=== PATIENT | male | born 1960 | race Hispanic/Latino ===

== ENCOUNTER 2022-10-14 21:55 | Emergency (ER) | payer BC ==
[2022-10-14] MEDS ORDERED: FAMOTIDINE 20 MG/2 ML VIAL IV ONE (23:37)
[2022-10-14] MEDS ORDERED: PANTOPRAZOLE 40 MG INJ ONE (23:37)
[2022-10-14] MEDS ORDERED: NA CHLORIDE 0.9% 250 ML ONE (23:37)
[2022-10-14 23:56] LABS: Absolute Lymphocytes (CBC) 1.7 K/uL (0.7-4.9); Hematocrit 36.7 % (39.6-49.0); MCV 94.1 fL (80-100); MPV 7.3 fL (7.6-11.3)
[2022-10-15 00:13] LABS: Albumin 3.7 g/dL (3.4-5.0); Bilirubin Total 0.6 mg/dL (0.2-1.0); Potassium 3.8 mEq/L (3.5-5.1); Protein, Total 6.6 g/dL (6.4-8.2)
--- NOTE | 2022-10-15 02:46 | EDPHYS ---
Physician Documentation [facility] Name: Saul Russo Age: 62 yrs Sex: Male : 1960 Arrival Date: 10/14/2022 Time: 21:55 Bed 2 Private MD: ED Physician Arturo Guzman HPI: 10/14 22:29 This 62 yrs old Male presents to ER via Unassigned with complaints of Bloody sp4 Stools. 22:36 Patient presents with cute onset of bloody bowel movement starting at 2 PM. Patient sp4 developed diffuse abdominal pain about 2 PM associated with 2 episodes of bright red blood per rectum. Patient has no prior similar symptoms. No dizziness or passing out. No bloody emesis. Patient has history of partial colectomy done in [facility] 3 years ago for acute diverticulitis. Patient is a resident of [facility] he is here on a leisure trip. . Historical: - Allergies: 23:12 No Known Allergies; lg3 - Home Meds: 23:12 Paxil Oral [Active]; Simvastatin Oral [Active]; losartan oral [Active]; amlodipine oral lg3 [Active]; - PMHx: 23:12 HTN; high cholesterol; Diverticulitis; lg3 - PSHx: 23:12 colon removal; lg3 - Immunization history:: Adult Immunizations up to date, Client reports having NOT received the Covid vaccine. Pneumococcal vaccine is up to date, Flu vaccine is not up to date. - Social history:: Patient/guardian denies using alcohol, street drugs, IV drugs, caffeine, over the counter diet medications, tobacco products, Smoking status: Patient denies any tobacco usage or history of. Patient uses alcohol, occasionally. - Family history:: not pertinent. ROS: 22:36 Constitutional: Negative for fever, chills, and weight loss, Eyes: Negative for injury, sp4 pain, redness, and discharge, ENT: Negative for injury, pain, and discharge, Neck: Negative for injury, pain, and swelling, Cardiovascular: Negative for chest pain, palpitations, and edema, Respiratory: Negative for shortness of breath, cough, wheezing, and pleuritic chest pain, Abdomen/GI: Negative for nausea, vomiting, diarrhea, and constipation, positive for diffuse abdominal pain and 2 episodes of bloody stool. Back: Negative for injury and pain, : Negative for injury, bleeding, discharge, and swelling, MS/Extremity: Negative for injury and deformity, Skin: Negative for injury, rash, and discoloration, Neuro: Negative for headache, weakness, numbness, tingling, and seizure, Psych: Negative for depression, anxiety, Allergy/Immunology: Negative for hives, rash, and allergies Endocrine: Negative for neck swelling, polydipsia, polyuria, polyphagia, and weight changes Hematologic/Lymphatic: Negative for swollen nodes, abnormal bleeding, and unusual bruising Exam: 22:36 Constitutional: This is a well developed, well nourished patient who is awake, alert, sp4 and in no acute distress. Head/Face: Normocephalic, atraumatic. Eyes: Pupils equal round and reactive to light, extra-ocular motions intact. Lids and lashes normal. Conjunctiva and sclera are not injected. Cornea within normal limits. Periorbital areas with no swelling, redness, or edema. ENT: Nares patent. No nasal discharge, no septal abnormalities noted. Tympanic membranes are normal and external auditory canals are clear. Oropharynx with no redness, swelling, or masses, exudates, or evidence of obstruction, uvula midline. Mucous membranes moist. Neck: Trachea midline, no thyromegaly or masses palpated, and no cervical lymphadenopathy. Supple, full range of motion without nuchal rigidity, or vertebral point tenderness. No Meningismus. Chest/axilla: Normal chest wall appearance and motion. Nontender with no deformity. No lesions are appreciated. Cardiovascular: Regular rate and rhythm with a normal S1 and S2. No gallops, murmurs, or rubs. Normal PMI, no JVD. No pulse deficits. Respiratory: Lungs have equal breath sounds bilaterally, clear to auscultation and percussion. No rales, rhonchi or wheezes noted. No increased work of breathing, no retractions or nasal flaring. Abdomen/GI: Soft, non-tender, with normal bowel sounds. No distension or tympany. No guarding or rebound. No evidence of tenderness throughout. Back: No spinal tenderness. No costovertebral tenderness. Skin: Warm, dry with normal turgor. Normal color with no rashes, no lesions, and no evidence of cellulitis. MS/ Extremity: Pulses equal, no cyanosis. Neurovascular intact. Full, normal range of motion. Neuro: Awake and alert, GCS 15, oriented to person, place, time, and situation. Cranial nerves II-XII grossly intact. Motor strength 5/5 in all extremities. Sensory grossly intact. Psych: Awake, alert, with orientation to person, place and time. Behavior, mood, and affect are within normal limits Vital Signs: 23:11 BP 121 / 96; Pulse 76; Resp 17 S; Temp 97.8(O); Pulse Ox 100% on R/A; Weight 88.45 kg lg3 (R); Height 5 ft. 11 in. (R); 23:30 BP 123 / 86; Pulse 70; Resp 18 S; Pulse Ox 98% on R/A; ha1 10/15 00:53 BP 125 / 89; Pulse 68; Resp 16; Pulse Ox 98% on R/A; rv 01:30 BP 119 / 83; Pulse 70; Resp 16 S; Pulse Ox 98% on R/A; ha1 03:53 BP 118 / 81; Pulse 61; Resp 16; Pulse Ox 99% on R/A; rv 04:39 BP 133 / 89; Pulse 65; Resp 16; Temp 98.1; Pulse Ox 100% on R/A; rv 10/14 23:11 Body Mass Index 27.20 (88.45 kg, 180.34 cm) lg3 Marva Coma Score: 04:39 Eye Response: spontaneous(4). Motor Response: obeys commands(6). Verbal Response: rv oriented(5). Total: 15. MDM: 10/14 22:36 Patient medically screened. sp4 10/15 02:39 Differential Diagnosis altered mental status, Gastric bleed, colonic bleed, sp4 diverticular bleed, upper GI bleed, lower GI bleed, gastritis, duodenitis, colitis.. Data reviewed: vital signs, nurses notes, lab test result(s), cardiac enzymes, CBC, electrolytes, hepatic panel, radiologic studies, CT scan. Consideration of Admission/Observation Patient was admitted/placed on observation. Escalation of care including admission/observation considered. ED course: CT IMPRESSION: 1. No acute abdominopelvic findings. 2. Colonic diverticulosis without evidence of acute diverticulitis. 3. Mild prostatomegaly. Correlate with PSA. . ED course: Hemoglobin at this time is 13 but patient had 1 more bloody bowel movement in the ER. Patient appears to be actively losing blood. Bloody maroon stool. . ED course: GI Dr. Cintron states he will not be here tomorrow. Patient therefore warrants transfer to [facility] for gastroenterology assessment and colonoscopy. ED course: Patient is okay to have clear liquid diet. 04:14 ED course: Patient was accepted by the [facility] . [facility] 10/14 22:35 Order name: CBC with Diff; Complete Time: 02:30 [facility] 10/14 22:35 Order name: CMP; Complete Time: 02:30 [facility] 10/14 22:35 Order name: Lipase; Complete Time: 02:30 [facility] 10/14 22:35 Order name: Type And Screen; Complete Time: 02:30 [facility] 10/14 22:35 Order name: PT-INR; Complete Time: 02:30 [facility] 10/15 03:41 Order name: SARS RAPID [facility] 10/15 03:42 Order name: Hemoglobin [facility] 10/14 22:35 Order name: CT Abd/Pelvis - IV Contrast Only [facility] 10/14 22:35 Order name: IV Saline Lock; Complete Time: 23:54 [facility] 10/14 22:35 Order name: Labs collected and sent; Complete Time: 23:54 [facility] 10/15 03:41 Order name: Saline Lock; Complete Time: 03:42 sp4 Administered Medications: 10/14 23:54 Drug: Famotidine IVP 20 mg Route: IVP; Site: right forearm; rv 10/15 03:53 Follow up: Response: No adverse reaction rv 10/14 23:54 Drug: Pantoprazole IVP 80 mg Route: IVP; Site: right forearm; rv 10/15 03:52 Follow up: Response: No adverse reaction rv 10/14 23:54 Drug: Pantoprazole IV 8 mg/hr Route: IV; Rate: 25 ml/hr; Site: right forearm; rv 10/15 03:52 Follow up: IV Status: Infusion continued upon transfer rv 03:52 Drug: NS 0.9% IV 1000 ml Route: IV; Rate: 1 bolus; Site: right antecubital; rv 04:38 Follow up: IV Status: Completed infusion; IV Intake: 1000ml rv 04:38 Drug: D5-1/2 NS with KCl IV 20 mEq/L 1000 ml Route: IV; Rate: 125 ml/hr; Site: right rv antecubital; 04:38 Follow up: IV Status: Infusion continued upon transfer rv Disposition Summary: 10/15/22 02:45 Transfer Ordered Transfer Location: [facility] sp4 Reason: Higher level of care sp4 Condition: Stable sp4 Problem: new sp4 Symptoms: have improved sp4 [facility]10[facility]15/[facility] 04:43[facility] rv Diagnosis - GI Bleed/ Gastrointestinal hemorrhage, unspecified sp4 - Acute lower GI bleeding. sp4 Forms: - Medication Reconciliation Form sp4 - SBAR form sp4 Signatures: Dispatcher [employer] Spike Thorne RN RN Karolina Gunn RN RN lg3 Arturo Guzman MD MD sp4 Corrections: (The following items were deleted from the chart) 04:43 02:45 [facility] ponce4 rv
--- NOTE | 2022-10-15 02:46 | ER ---
Nurse's Notes [facility] Name: Saul Russo Age: 62 yrs Sex: Male : 1960 Arrival Date: 10/14/2022 Time: 21:55 Bed 2 Private MD: Diagnosis: GI Bleed/ Gastrointestinal hemorrhage, unspecified;Acute lower GI bleeding. Presentation: 10/14 23:11 Chief complaint: Patient states: bloody stools and bloating since 1400. Coronavirus lg3 screen: Client denies travel out of the [place] in the last 14 days. At this time, the client does not indicate any symptoms associated with coronavirus-19. Ebola Screen: No symptoms or risks identified at this time. Initial Sepsis Screen: Does the patient meet any 2 criteria? No. Patient's initial sepsis screen is negative. Does the patient have a suspected source of infection? No. Patient's initial sepsis screen is negative. Risk Assessment: Do you want to hurt yourself or someone else? Patient reports no desire to harm self or others. Onset of symptoms was October 14, 2022. 23:11 Method Of Arrival: Ambulatory lg3 23:11 Acuity: REYNA 3 lg3 Triage Assessment: 23:12 General: Appears in no apparent distress. uncomfortable, Behavior is calm, cooperative. lg3 Pain: Denies pain. EENT: No deficits noted. No signs and/or symptoms were reported regarding the EENT system. Neuro: No deficits noted. [place] Agitation-Sedation Scale (RASS): 0 - Alert and Calm Level of Consciousness is awake, alert, obeys commands, Oriented to person, place, time, situation. Cardiovascular: No deficits noted. Denies chest pain, shortness of breath, Capillary refill < 3 seconds Clubbing of nail beds is absent JVD is absent Patient's skin is warm and dry. Respiratory: No deficits noted. Airway is patent Respiratory effort is even, unlabored, Respiratory pattern is regular, symmetrical. GI: Reports bloating, rectal bleeding, bloody stool. : No deficits noted. No signs and/or symptoms were reported regarding the genitourinary system. Derm: No deficits noted. No signs and/or symptoms reported regarding the dermatologic system. Skin is intact, is healthy with good turgor, Skin is dry, Skin is normal, Skin temperature is warm. Musculoskeletal: No deficits noted. No signs and/or symptoms reported regarding the musculoskeletal system. Circulation, motion, and sensation intact. Range of motion: intact in all extremities. Historical: - Allergies: 23:12 No Known Allergies; lg3 - Home Meds: 23:12 Paxil Oral [Active]; Simvastatin Oral [Active]; losartan oral [Active]; amlodipine oral lg3 [Active]; - PMHx: 23:12 HTN; high cholesterol; Diverticulitis; lg3 - PSHx: 23:12 colon removal; lg3 - Immunization history:: Adult Immunizations up to date, Client reports having NOT received the Covid vaccine. Pneumococcal vaccine is up to date, Flu vaccine is not up to date. - Social history:: Patient/guardian denies using alcohol, street drugs, IV drugs, caffeine, over the counter diet medications, tobacco products, Smoking status: Patient denies any tobacco usage or history of. Patient uses alcohol, occasionally. - Family history:: not pertinent. Screenin:16 Abuse screen: Denies threats or abuse. Denies injuries from another. Nutritional ha1 screening: No deficits noted. Tuberculosis screening: No symptoms or risk factors identified. 23:16 [facility] ED Fall Risk Assessment (Adult) History of falling in the last 3 months, ha1 including since admission No falls in past 3 months (0 pts) Confusion or Disorientation No (0 pts) Intoxicated or Sedated No (0 pts) Impaired Gait No (0 pts) Mobility Assist Device Used No (0 pt) Altered Elimination No (0 pt) Score/Fall Risk Level 0 - 2 = Low Risk Oriented to surroundings, Maintained a safe environment, Educated pt \T\ family on fall prevention, incl call for assistance when getting out of bed. Assessment: 23:16 General: Appears comfortable, Behavior is calm, cooperative. Pain: Denies pain. Neuro: ha1 Level of Consciousness is awake, alert, obeys commands, Oriented to person, place, time, situation. Cardiovascular: Capillary refill < 3 seconds Patient's skin is warm and dry. Respiratory: Airway is patent Respiratory effort is even, unlabored, Respiratory pattern is regular, symmetrical. GI: Abdomen is flat, non-distended, Bowel sounds present X 4 quads. Abd is soft and non tender Reports diarrhea, bloody stool, Diverticulitis. 23:16 : No signs and/or symptoms were reported regarding the genitourinary system. Derm: ha1 Skin is moist, Skin is normal. Musculoskeletal: Circulation, motion, and sensation intact. Range of motion: intact in all extremities. 10/15 00:10 Reassessment: Patient and/or family updated on plan of care and expected duration. Pain ha1 level reassessed. Patient is alert, oriented x 3, equal unlabored respirations, skin warm/dry/pink. 01:10 Reassessment: Patient and/or family updated on plan of care and expected duration. Pain ha1 level reassessed. Patient is alert, oriented x 3, equal unlabored respirations, skin warm/dry/pink. Vital Signs: 10/14 23:11 BP 121 / 96; Pulse 76; Resp 17 S; Temp 97.8(O); Pulse Ox 100% on R/A; Weight 88.45 kg lg3 (R); Height 5 ft. 11 in. (R); 23:30 BP 123 / 86; Pulse 70; Resp 18 S; Pulse Ox 98% on R/A; ha1 10/15 00:53 BP 125 / 89; Pulse 68; Resp 16; Pulse Ox 98% on R/A; rv 01:30 BP 119 / 83; Pulse 70; Resp 16 S; Pulse Ox 98% on R/A; ha1 03:53 BP 118 / 81; Pulse 61; Resp 16; Pulse Ox 99% on R/A; rv 04:39 BP 133 / 89; Pulse 65; Resp 16; Temp 98.1; Pulse Ox 100% on R/A; rv 10/14 23:11 Body Mass Index 27.20 (88.45 kg, 180.34 cm) lg3 [place] Coma Score: 04:39 Eye Response: spontaneous(4). Motor Response: obeys commands(6). Verbal Response: rv oriented(5). Total: 15. ED Course: 10/14 21:58 Patient arrived in ED. ja2 22:29 Arturo Guzman MD is Attending Physician. sp4 23:12 Triage completed. lg3 23:12 Arm band placed on right wrist. lg3 23:16 Patient has correct armband on for positive identification. Placed in gown. Bed in low ha1 position. Call light in reach. Side rails up X 1. Adult w/ patient. 23:45 Inserted saline lock: 18 gauge in right forearm, using aseptic technique. Blood rv collected. 23:45 Inserted saline lock: 20 gauge in right antecubital area, using aseptic technique. rv 10/15 00:47 CT Abd/Pelvis - IV Contrast Only In Process Unspecified. EDMS 00:53 Spike Ramirez, RN is Primary Nurse. rv 01:56 Door closed. Noise minimized. Lights dimmed. Warm blanket given. Pillow given. ha1 04:39 No provider procedures requiring assistance completed. Patient transferred, IV remains rv in place. Administered Medications: 10/14 23:54 Drug: Famotidine IVP 20 mg Route: IVP; Site: right forearm; rv 10/15 03:53 Follow up: Response: No adverse reaction rv 10/14 23:54 Drug: Pantoprazole IVP 80 mg Route: IVP; Site: right forearm; rv 10/15 03:52 Follow up: Response: No adverse reaction rv 10/14 23:54 Drug: Pantoprazole IV 8 mg/hr Route: IV; Rate: 25 ml/hr; Site: right forearm; rv 10/15 03:52 Follow up: IV Status: Infusion continued upon transfer rv 03:52 Drug: NS 0.9% IV 1000 ml Route: IV; Rate: 1 bolus; Site: right antecubital; rv 04:38 Follow up: IV Status: Completed infusion; IV Intake: 1000ml rv 04:38 Drug: D5-1/2 NS with KCl IV 20 mEq/L 1000 ml Route: IV; Rate: 125 ml/hr; Site: right rv antecubital; 04:38 Follow up: IV Status: Infusion continued upon transfer rv Medication: 04:40 VIS not applicable for this client. rv Intake: 04:38 IV: 1000ml; Total: 1000ml. rv Outcome: 02:45 ER care complete, transfer ordered by MD. bronson 04:39 Transferred by ground EMS to [facility]. rv 04:39 Condition: stable 04:39 Instructed on the need for transfer. 04:43 Patient left the ED. rv Signatures: Dispatcher [employer] EDMS Spike Ramirez, RN RN rv Karolina Mcintyre, RN RN 3 Lary Valderrama [facility] Evelyn French RN RN ha1 Arturo Guzman MD MD sp4
[2022-10-15] MEDS ORDERED: NA CHLORIDE 0.9% 1,000 ML ONE (03:49)
[2022-10-15] MEDS ORDERED: D5.45NS W/KCL 20MEQ 1,000 ML IV ONE (03:59)
[2022-10-15 04:30] LABS: SARS-CoV-2 Antigen Rapid Res Negative (Negative)
[2022-10-15 04:58] VITALS: BP 133/89; TEMP 98.1; O2SAT 100
--- NOTE | 2022-10-15 13:49 | RAD REPORT ---
EXAM DESCRIPTION: CT - Abdomen Pelvis W Contrast - 10/15/2022 2:19 am CLINICAL HISTORY: 62 years Male bloody stools, bloating, abd pain COMPARISON: None TECHNIQUE: CT of the abdomen and pelvis with intravenous contrast. All CT scans at this facility use dose modulation, iterative reconstruction, and/or weight based dosi ng when appropriate to reduce radiation dose to as low as reasonably achievable. FINDINGS: Lower thorax: Lung bases are clear. Small hiatal hernia. Abdomen: Stomach: Within normal limits Liver: No focal lesions. No intrahepatic ductal distention. Gallbladder: Nondistended Pancreas: Within normal limits Spleen: Within normal limits Right kidney: No hydronephrosis. 3.2 cm ovoid hypodensity, likely cyst. Left kidney: No hydronephrosis. Multiple ovoid hypodensities, largest measuring 1.4 cm, likely cysts. Adrenal glands: Within normal limits Vascular structures: Within normal limits Nodes: No lymphadenopathy by size criteria Pelvis: Small bowel: No significant distention. Appendix: Within normal limits Colon: No distention or acute pericolonic edema. Postoperative changes of the sigmoid colon suggested . Colonic diverticulosis. Numerous surgical clips in the left lower abdomen. Peritoneum: No free intraperitoneal fluid or air. Bones: No acute bone findings. Bladder: Under distended, limiting evaluation. Reproductive organs: Mild prostatomegaly. Soft tissues: Small fat-containing bilateral inguinal hernias. IMPRESSION: 1. No acute abdominopelvic findings. 2. Colonic diverticulosis without evidence of acute diverticulitis. 3. Mild prostatomegaly. Correlate with PSA. Electronically signed by: Urbano Villegas MD 10/15/2022 1:02 AM CDT Due to temporary technical issues with the PACS/Fluency reporting system, reports are being signed by the in house radiologist without review as a courtesy to ensure prompt reporting. The interpreting r adiologist is fully responsible for the content of the report.
== END 2022-10-15 04:43 | disposition short-term general hospital (02) ==
LOC: ER 21:55
DX: K92.2 Gastrointestinal hemorrhage, unspecified (principal); I10 Essential (primary) hypertension; E78.00 Pure hypercholesterolemia, unspecified; Z20.822 Contact with and (suspected) exposure to COVID-19
CPT/HCPCS: 96365; 96361; 85025; 36415; 86900; 86850; 85610; 86901; 85018; 83690; 80053; 74177; 96375; 99285; 96366; 87811; Q9967; C9113; J7050; J7030